=== PATIENT | male | born 2000 | race Hispanic/Latino ===

== ENCOUNTER 2018-04-24 21:27 | Emergency (ER) | payer OTHER ==
--- NOTE | 2018-04-24 22:00 | RAD ---
LEFT HAND THREE VIEWS: 04/24/18 HISTORY: Injured hand. There is a tuft fracture of the distal phalanx of the little finger. No other findings. IMPRESSION: Tuft fracture little finger. POS: [facility]
== END 2018-04-24 22:46 | disposition home or self-care (01) ==
LOC: ERS 21:27
DX: S62.637A Displaced fracture of distal phalanx of left little finger, initial encounter for closed fracture (principal); Z71.6 Tobacco abuse counseling; F17.210 Nicotine dependence, cigarettes, uncomplicated; W23.0XXA Caught, crushed, jammed, or pinched between moving objects, initial encounter
CPT/HCPCS: 99406